=== PATIENT | male | born 1990 | race American Indian/Alaskan Native ===

== ENCOUNTER 2016-12-22 03:14 | Emergency (ER) | payer SELFPAY ==
[2016-12-22 03:30] VITALS: BP 110/70; TEMP 97.2; O2SAT 100
[2016-12-22] MEDS ORDERED: Naloxone 0.4 mg/ml Inj (Adult) ONE ×2 (03:44→03:50)
[2016-12-22] MEDS ORDERED: Sodium Chloride 0.9% 1,000 ML IV ONE (03:55)
[2016-12-22] MEDS ORDERED: Naloxone 0.4 mg/ml Inj (Adult) IVP STA ×2 (03:56)
[2016-12-22 04:06] LABS: BASO % 0.3 % (0.0-2.0); EOS % 0.3 % (0.0-4.0); HEMATOCRIT 45.4 % (35.0-51.0); LYMPH # 2.9 K/uL (1.0-4.3); LYMPH % 37.8 % (20.0-40.0); MEAN CELL VOLUME 89.6 fL (80.0-94.0); MEAN CORPUSCULAR HEMOGLOBIN 28.9 pg (27.0-31.0); MEAN CORPUSCULAR HGB CONC 32.3 g/dL (33.0-37.0); MONO # 0.6 K/uL (0.0-0.8); MONO % 7.3 % (0.0-10.0); NRBC % 0.2 % (0.0-2.0); RED CELL DISTRIBUTION WIDTH 15.3 % (11.5-14.5); WHITE BLOOD COUNT 7.8 K/uL (4.8-10.8)
[2016-12-22 04:15] LABS: URINE BILIRUBIN NEGATIVE (NEGATIVE); URINE BLOOD NEGATIVE (NEGATIVE); URINE COLOR Yellow (YELLOW); URINE GLUCOSE (UA) NORMAL (Normal); URINE HYALINE CAST 0-2 /lpf (0-2); URINE KETONE NEGATIVE (NEGATIVE); URINE LEUKOCYTE ESTERASE NEG Leu/uL (Negative); URINE PROTEIN NEGATIVE (NEGATIVE); URINE UROBILINOGEN NORMAL mg/dL (0.2-1.0); WBC URINE 1 /hpf (0-5)
[2016-12-22 04:18] LABS: CHLORIDE 104 mmol/L (98-107)
[2016-12-22 04:19] LABS: POTASSIUM 3.9 mmol/L (3.6-5.2); SODIUM 143 mmol/L (132-148)
[2016-12-22 04:21] LABS: GFR AFRICAN-AMERICAN > 60
[2016-12-22 04:22] LABS: ALB/GLOB RATIO 1.9 (1.0-2.1); ALKALINE PHOSPHATASE 72 U/L (38-126); ALT/SGPT 79 U/L (21-72); AST/SGOT 108 U/L (17-59); BILIRUBIN,TOTAL 0.5 mg/dL (0.2-1.3); BLOOD UREA NITROGEN 14 mg/dL (9-20); CALCIUM 8.9 mg/dl (8.6-10.4); CARBON DIOXIDE 22 mmol/L (22-30); GLUCOSE,RANDOM 84 mg/dL (75-110); TOTAL PROTEIN 8.8 g/dL (6.3-8.3)
[2016-12-22 04:23] LABS: ALCOHOL SERUM 271 mg/dl (0-10)
--- NOTE | 2016-12-22 05:05 | C.PDOC ---
History Of Present Illness <Zachary Neff - Last Filed: 12/22/16 05:49> <KorinDewayne L - Last Filed: 12/22/16 07:32> A 26 y/o male brought in by police and EMS was found on the street sleeping by the sidewalk [employer]. EMS notes no sign of injury, pinpoint pupils, (+) ETOH on breath. (TawandaJemmaZachary R) History Per: EMS History/Exam Limitations: Intoxication Onset/Duration Of Symptoms: Hrs Current Symptoms Are (Timing): Still Present Exacerbating Factor(s): Alcohol Use Severity: Mild Recent travel outside of the [place]: No <Zachary Neff - Last Filed: 12/22/16 05:49> <Dewayne Langley - Last Filed: 12/22/16 07:32> Time Seen by Provider: 12/22/16 04:35 Chief Complaint (Nursing): Altered Mental Status Past Medical History Reviewed: Historical Data, Nursing Documentation, Vital Signs Family History: States: Unknown Family Hx - Social History Hx Alcohol Use: No Hx Substance Use: Yes <Zachary Neff - Last Filed: 12/22/16 05:49> Review Of Systems Review Of Systems: ROS cannot be obtained secondary to pt's inabilty to answer questions. Constitutional: Negative for: Other (No trauma) <Zachary Neff - Last Filed: 12/22/16 05:49> Physical Exam - Physical Exam Appears: Non-toxic, No Acute Distress, Other ((+) AOB. No trauma) Skin: Warm, Dry Head: Atraumatic, Normacephalic Eye(s): bilateral: Other (Pinpoint pupils) Neck: Normal, Supple Cardiovascular: Rhythm Regular, No Murmur Respiratory: Normal Breath Sounds, No Rales, No Rhonchi, No Wheezing Gastrointestinal/Abdominal: Soft, No Tenderness <NeffZachary - Last Filed: 12/22/16 05:49> ED Course And Treatment - Laboratory Results Result Diagrams: 12/22/16 04:02 12/22/16 04:02 O2 Sat by Pulse Oximetry: 100 (RA) Pulse Ox Interpretation: Normal <Zachary Neff - Last Filed: 12/22/16 05:49> - Laboratory Results Result Diagrams: 12/22/16 04:02 12/22/16 04:02 <Dewayne Langley - Last Filed: 12/22/16 07:32> Medical Decision Making <Zachary Neff - Last Filed: 12/22/16 05:49> <Dewayne Langley - Last Filed: 12/22/16 07:32> Medical Decision Making: Plans -Narcan -Reassess and disposition Pt was given .4mg narcan with slight increase in alertness. 40 bradley catheter inserted and was sent to laboratory. (Zachary Neff) Disposition - Disposition Disposition Time: 07:00 - POA Present On Arrival: None <Zachary Neff - Last Filed: 12/22/16 05:49> <Dewayne Langley - Last Filed: 12/22/16 07:32> - Disposition Disposition: ELOPEMENT - ER ONLY Condition: STABLE - Clinical Impression Clinical Impression: Alcohol intoxication - Scribe Statement The provider has reviewed the documentation as recorded by the Scribe <Zachary Nfef - Last Filed: 12/22/16 05:49> <Dewayne Langley - Last Filed: 12/22/16 07:32> - Scribe Statement Jenny garcia All medical record entries made by the Scribe were at my direction and personally dictated by me. I have reviewed the chart and agree that the record accurately reflects my personal performance of the history, physical exam, medical decision making, and the department course for this patient. I have also personally directed, reviewed, and agree with the discharge instructions and disposition. (Zachary Neff) Physician Patient Turnover Patient Signed Over To: Dewayne Langley Handoff Comments: pending sobriety <Zachary Neff - Last Filed: 12/22/16 05:49> Addendum <Zachary Neff - Last Filed: 12/22/16 05:49> <Dewayne Langley - Last Filed: 12/22/16 07:32> Addendum: Pt endorsed to me However when I went to evaluate the pt he could not be found in the ED ( Dewayne Langley)
[2016-12-22 06:02] VITALS: PULSE 78; RESP 20
== END 2016-12-22 06:41 | disposition left against medical advice (07) ==
LOC: C.ER 03:14
DX: F10.129 Alcohol abuse with intoxication, unspecified (principal); Y90.8 Blood alcohol level of 240 mg/100 ml or more
CPT/HCPCS: 51702; 80053; 81001; 85025; 96372; 96374; 99285; G0480; J1630; J2060; J2310; J7040